=== PATIENT | female | born 1960 | race Caucasian/White ===

== ENCOUNTER 2019-02-27 09:37 | Emergency (ER) | payer BC ==
[2019-02-27 09:57] VITALS: BP 150/73
--- NOTE | 2019-02-27 10:15 | UC ---
Skin Complaint HPI - HPI Summary HPI Summary: 58-year-old female who has a small bruise on the back of her right lower leg and what appears to be some insect bites. She was concerned that this was an infection however she has had them for 3 days and today the areas have improved. - History of Current Complaint Chief Complaint: [facility] Time Seen by Provider: 02/27/19 10:11 Stated Complaint: RT LEG SKIN COMPLAINT Hx Obtained From: Patient ?: No Onset/Duration: Gradual Onset Skin Exposure Onset/Duration: Days Ago Timing: Constant Onset Severity: Mild Current Severity: Mild Pain Intensity: 0 Location: Other Character: Pruritus - Lower right leg., Redness Aggravating Factor(s): Nothing Alleviating Factor(s): Nothing - Patient is unsure where she got the bruise that is located there and unsure whether the spots are insect bites. - Allergy/Home Medications Allergies/Adverse Reactions: Allergies Allergy/AdvReac Type Severity Reaction Status Date / Time No Known Allergies Allergy Verified 02/27/19 09:51 Home Medications: Home Medications Ibuprofen TAB* [Advil TAB*] 600 mg PO DAILY 02/27/19 [History Confirmed 02/27/19 ] PMH/Surg Hx/FS Hx/Imm Hx Previously Healthy: Yes - Surgical History Surgical History: Yes Surgery Procedure, Year, and Place: appy - Family History Known Family History: Positive: Non-Contributory - Social History Alcohol Use: Occasionally Substance Use Type: None Smoking Status (MU): Never Smoked Tobacco Review of Systems All Other Systems Reviewed And Are Negative: Yes Skin: Positive: Bruising - Primary minimal bruising to the dorsum of right hand. Motor: Positive: Negative Neurovascular: Positive: Negative Musculoskeletal: Positive: Other: - Following the negative hand x-ray the patient was able to move her fingers and she had Neurological: Positive: Negative Is Patient Immunocompromised?: No Physical Exam Triage Information Reviewed: Yes Appearance: Well-Appearing, No Pain Distress, Well-Nourished Vital Signs: Initial Vital Signs Temp 99.1 F 02/27/19 09:51 Pulse 93 02/27/19 09:51 Resp 18 02/27/19 09:51 BP 150/73 02/27/19 09:51 Pulse Ox 100 02/27/19 09:51 Vital Signs Reviewed: Yes Musculoskeletal: Positive: Strength Intact, ROM Intact, Other: - Following the negative hand x-ray the patient was able to move her fingers and she hadgood strength with flexion extension against resistance. Mild tenderness to the dorsum of the right hand with minimal bruising. Navicular is nontender and wrist is nontender, she has good elbow stability. Neurological: Positive: Alert, Muscle Tone Normal Psychological Exam: Normal Skin Exam: Normal Course/Dx - Course Course Of Treatment: Hand x-ray negative. Following the x-ray the patient was able to put her fingers through range of motion and she had good finger strength with flexion and extension against resistance. She refused an Rob bandage. - Diagnoses Provider Diagnosis: Contusion, hand Discharge - Sign-Out/Discharge Documenting (check all that apply): Patient Departure All imaging exams completed and their final reports reviewed: Yes - Discharge Plan Condition: Fair Disposition: HOME Patient Education Materials: Insect Bite or Sting (ED) Referrals: Anita Feldman MD [Primary Care Provider] - Additional Instructions: You may continue applying the Benadryl cream as directed. Watch for any worsening symptoms and follow up with her primary care provider as needed. - Billing Disposition and Condition Condition: FAIR Disposition: Home
== END 2019-02-27 10:25 | disposition home or self-care (01) ==
LOC: UCCORT 09:37
DX: S60.221A Contusion of right hand, initial encounter (principal); X58.XXXA Exposure to other specified factors, initial encounter; Y92.9 Unspecified place or not applicable
CPT/HCPCS: 99201; G0463